=== PATIENT | female | born 1985 | race Caucasian/White ===

== ENCOUNTER 2020-05-26 07:46 | Outpatient (CLI) | payer OTHER, SELFPAY ==
--- NOTE | 2020-05-26 07:56 | US_ITS ---
WS: [id number] ULTRASOUND PELVIS TECHNIQUE: Transabdominal and transvaginal. ULTRASOUND PELVIS TECHNIQUE: Transabdominal. CLINICAL INFORMATION: ELEVATED SERUM HCG W/VAGINAL BLEEDING : No. COMPARISON: None. FINDINGS: Uterus Orientation: Anteverted. Size: 7.00 cm x 4.7 cm x 3.6 cm. Masses: None. Endometrium: Normal. Endometrium thickness: 0.5 cm. Adnexa: Right ovarian cyst. Cystic lesion left ovary measuring 7 x 4 mm with peripheral vascularity m ay represent corpus luteum cyst but ectopic not excluded. Small amount of internal debris. Bowel left adnexa. Right ovary size: 2.7 cm x 1.5 cm x 1.1 cm. Right ovary volume: 2.3 ccm3. Left ovary size: 2.5 cm x 1.3 cm x 1.3 cm. Left ovary volume: 2.2 ccm3 Free fluid: Present Other findings: None. US/US pelvic with transvaginal IMPRESSION: 1. No evidence of intrauterine . 2. Left ovarian cystic lesion with peripheral vascularity may represent corpus luteum cyst measuring 4.2 x 7.7 mm. However, Ectopic not entirely ex cluded. Recommend continued surveillance and short interval follow-up. Correlat ion with beta-hCG. 3. Simple appearing cysts right ovary. 4. Moderate Echogenic fluid/blood products in the cul-de-sac. 5. Endometrium measures 5 mm.
== END 2020-05-26 07:47 | disposition home or self-care (01) ==
LOC: RAD 07:51
PROVIDERS: PCP Family Medicine; Visit Provider Family Medicine
DX: R89.1 Abnormal level of hormones in specimens from other organs, systems and tissues (principal); N93.9 Abnormal uterine and vaginal bleeding, unspecified; N83.202 Unspecified ovarian cyst, left side; N83.291 Other ovarian cyst, right side
CPT/HCPCS: 76830; 76856

== ENCOUNTER → 2020-05-27 17:35 | Outpatient (BNVA) | payer OTHER, SELFPAY | PROVIDERS: PCP Family Medicine; Visit Provider Obstetrics & Gynecology | DX: Z34.90 Encounter for supervision of normal pregnancy, unspecified, unspecified trimester (principal) | CPT/HCPCS: 80053; 85025; 86850; 86900 ==

== ENCOUNTER → 2020-05-28 12:18 | Day surgery (SDC) | payer OTHER, SELFPAY ==
[2020-05-28 12:30] VITALS: BP 153/79; PULSE 73; RESP 18; TEMP 36.3; O2SAT 100
== END ==
PROVIDERS: PCP Family Medicine; Visit Provider Obstetrics & Gynecology
DX: O00.90 Unspecified ectopic pregnancy without intrauterine pregnancy (principal)
CPT/HCPCS: 84702; 96372; J9260

== ENCOUNTER → 2020-05-31 12:57 | Outpatient (BNVA) | payer OTHER, SELFPAY | PROVIDERS: PCP Family Medicine; Visit Provider Obstetrics & Gynecology | DX: O00.90 Unspecified ectopic pregnancy without intrauterine pregnancy (principal); O26.91 Pregnancy related conditions, unspecified, first trimester | CPT/HCPCS: 84702 ==

== ENCOUNTER 2020-06-04 08:47 | Outpatient (CLI) | payer OTHER, SELFPAY ==
[2020-06-04 09:43] LABS: HCG Quantitative 30.79 mIU/mL
== END 2020-06-04 08:48 | disposition home or self-care (01) ==
LOC: RAD 08:50
PROVIDERS: PCP Family Medicine; Visit Provider Obstetrics & Gynecology
DX: O00.90 Unspecified ectopic pregnancy without intrauterine pregnancy (principal)
CPT/HCPCS: 84702

== ENCOUNTER → 2020-06-09 13:26 | Outpatient (BNVA) | payer OTHER, SELFPAY | PROVIDERS: PCP Family Medicine; Visit Provider Obstetrics & Gynecology | DX: O36.80X0 Pregnancy with inconclusive fetal viability, not applicable or unspecified (principal) | CPT/HCPCS: 84702 ==

== ENCOUNTER → 2020-06-22 11:47 | Outpatient (BNVA) | payer OTHER, SELFPAY | PROVIDERS: PCP Family Medicine; Visit Provider Obstetrics & Gynecology | DX: O36.80X0 Pregnancy with inconclusive fetal viability, not applicable or unspecified (principal) | CPT/HCPCS: 84702 ==

== ENCOUNTER → 2020-07-06 11:00 | Outpatient (BNVA) | payer OTHER, SELFPAY | PROVIDERS: PCP Family Medicine; Visit Provider Obstetrics & Gynecology | DX: Z12.4 Encounter for screening for malignant neoplasm of cervix (principal) | CPT/HCPCS: 88175 ==

== ENCOUNTER → 2022-09-10 15:42 | Outpatient (BNVA) | payer OTHER, SELFPAY | PROVIDERS: PCP Family Medicine; Visit Provider Emergency Medicine | DX: J02.9 Acute pharyngitis, unspecified (principal) | CPT/HCPCS: 87071; 87880 ==

== ENCOUNTER → 2025-04-22 15:38 | Outpatient (BNVA) | payer OTHER, SELFPAY | PROVIDERS: PCP Family Medicine; Visit Provider Nurse Practitioner Women's Health | DX: O03.4 Incomplete spontaneous abortion without complication (principal); Z01.419 Encounter for gynecological examination (general) (routine) without abnormal findings | CPT/HCPCS: 84702; 85025; 87624 ==

== ENCOUNTER → 2025-04-28 11:59 | Outpatient (BNVA) | payer OTHER, SELFPAY | PROVIDERS: PCP Family Medicine; Visit Provider Nurse Practitioner Women's Health | DX: R10.2 Pelvic and perineal pain (principal) | CPT/HCPCS: 76830 ==

== ENCOUNTER 2025-08-13 09:24 | Outpatient (CLI) | payer OTHER, SELFPAY ==
--- NOTE | 2025-08-13 09:40 | MM_ITS ---
WS: [id number] BILATERAL SCREENING DIGITAL TOMOSYNTHESIS MAMMOGRAM WITH CAD HISTORY: Z12.31 - Encounter for screening mammogram for malignant ... COMPARISON: None available. Bilateral CC and MLO views with tomosynthesis and synthetic mammography submitted. Computer aided detection analyzed. Breast composition: The breasts are heterogeneously dense, which may obscure small masses. No suspicious masses, microcalcifications or architectural distortion. MM/MM scr BI tomosynthesis [id number] IMPRESSION: BI-RADS: 1 - Negative FOLLOW UP: 1 Year Follow-up
== END 2025-08-13 09:25 | disposition home or self-care (01) ==
LOC: RAD 09:25
PROVIDERS: PCP Family Medicine; Visit Provider Nurse Practitioner Women's Health
DX: Z12.31 Encounter for screening mammogram for malignant neoplasm of breast (principal); R92.333 Mammographic heterogeneous density, bilateral breasts
CPT/HCPCS: 77063; 77067